=== PATIENT | female | born 2000 | race Caucasian/White ===

== ENCOUNTER 2021-10-16 23:46 | Emergency (ER) | payer OTHER, SELFPAY ==
--- NOTE | ~2021-10-16 | XR_ITS ---
EXAMINATION: XR CHEST CLINICAL INFORMATION: Chest pain COMPARISON: None TECHNIQUE: Frontal view of the chest was obtained. FINDINGS: Lung volumes are symmetric. No focal consolidation is seen. No evidence of pneumothorax, pleural effusion, or pulmonary edema. The cardiomediastinal contour is unremarkable. No acute osseous findings are seen. XR/XR chest 1V IMPRESSION: No acute cardiopulmonary findings.
[2021-10-17 00:21] VITALS: BP 124/71; PULSE 68; RESP 15; TEMP 36.8; O2SAT 98; BMI 32.2
--- NOTE | 2021-10-17 00:35 | ECG_ITS ---
Test Reason : ARRHYTHMIA/PALP Blood Pressure : / mmHG Vent. Rate : 076 BPM Atrial Rate : 076 BPM P-R Int : 146 ms QRS Dur : 076 ms QT Int : 386 ms P-R-T Axes : 025 043 015 degrees QTc Int : 434 ms Normal sinus rhythm with sinus arrhythmia Normal ECG No previous ECGs available Referred By: Generic ED Physician Electronically Signed By:Owen Owens
[2021-10-17 01:16] LABS: MANUAL DIFF FLAG NO
[2021-10-17 01:17] LABS: Basophils Percent Auto 0.2 % (0-2); Eosinophils Absolute Auto 0.1 X10*3/uL (0.0-0.4); Eosinophils Percent Auto 0.7 % (0-4); Hematocrit 41.9 % (37.0-47.0); Hemoglobin 13.7 g/dl (12.0-16.0); Imm Gran Abs Auto 0.01 X10*3/uL (0.00-0.03); Imm Gran Pct Auto 0.1 % (0.0-0.4); Lymphocytes Absolute Auto 1.6 X10*3/uL (1.2-4.9); Lymphocytes Percent Auto 18.9 % (20-40); Mean Corpuscular HGB Conc 32.7 g/dl (31.0-35.0); Mean Corpuscular Hemoglobin 28.5 pg (27.0-33.0); Mean Corpuscular Volume 87.3 fL (80.0-98.0); Mean Platelet Volume 8.7 fL (9.4-12.3); Monocytes Absolute Auto 0.4 X10*3/uL (0.1-1.2); Monocytes Percent Auto 4.5 % (2-11); Neutrophils Absolute Auto 6.2 x10*3/uL (2.0-8.3); Neutrophils Percent Auto 75.6 % (45-73); Platelet Count 357 X10*3/uL (160-400); Red Cell Distribution Width 15.2 % (11.0-16.0); White Blood Count 8.3 X10*3/uL (4.8-10.8)
[2021-10-17 01:20] VITALS: BP 112/69; PULSE 75; RESP 16; O2SAT 100
[2021-10-17 01:38] LABS: Anion Gap 12 (12-20); Blood Urea Nitrogen 10 mg/dL (9-16); Calcium 9.1 mg/dL (8.4-10.2); Carbon Dioxide 19 mmol/L (22-29); Chloride 112 mmol/L (96-108); Creatinine Clr Calc Pharmacy 85.5; Estimated Glomerular Filt Rate > 60; Glucose Random 90 mg/dL (60-115); Potassium 3.5 mmol/L (3.3-5.1); Sodium 139 mmol/L (135-145)
[2021-10-17 01:46] LABS: Troponin-I High Sensitivity < 3.5 ng/L (<3.5-17.0)
[2021-10-17 01:51] LABS: COVID-19 Test Negative (Negative)
--- NOTE | 2021-10-17 04:19 | ED.ARRPALP ---
HPI - Arrhythmia/Palpitations General Chief Complaint: Arrhythmia/Palpitations Stated Complaint: Chest Pain Time Seen by Provider: 10/17/21 01:39 Source: patient Mode of arrival: ambulatory History of Present Illness HPI narrative: 20-year-old female without significant past medical history other than being worked up for palpitations by her primary care provider and presents with same this evening without fever, chills, GI or symptoms. Patient states that during this episode she noted color change on her fingers and toes that is no longer apparent at this time. Related Data Home Medications Medication Instructions Recorded Confirmed acetazolamide 500 mg 4 cap PO BID 10/17/21 10/17/21 capsule,extended release levothyroxine 100 mcg tablet 1 tab PO DAILY 10/17/21 10/17/21 Allergies Allergy/AdvReac Type Severity Reaction Status Date / Time No Known Allergies Allergy Verified 10/17/21 00:31 Review of Systems Review of Systems: Pertinent positives and negatives as stated in HPI 10 point review of systems is otherwise negative. PMFSH Past Medical History Source: nursing notes reviewed Medical History Pressure in head Social History Social History Advance Directives: No Advance Directives Information Provided: Yes Patient : No Physical Exam Vital Signs: Vital Signs: Last Vital Signs Temp 98.3 F 10/17/21 00:21 Pulse 75 10/17/21 01:20 Resp 16 10/17/21 01:20 BP 112/69 10/17/21 01:20 Pulse Ox 100 10/17/21 01:20 BMI result Body Mass Index 32.2 VITAL SIGNS: Reviewed. GENERAL: Well developed, well nourished, in no acute distress. HEAD: Normocephalic/atraumatic EYES: PERRLA, EOMI EARS: Ext canals without abnormality, TMs non-bulging and non-erythematous NOSE: Nares patent bilateral OROPHARYNX: no oral lesions noted, posterior pharynx clear and non-erythematous without noted tonsillar enlargement/erythema/exudates NECK: Supple, no adenopathy LUNGS: Normal breath sounds, no tachypnea or increased work of breathing No adventitious sounds or accessory muscle use. SpO2<100> CARDIOVASCULAR: Regular rate and rhythm without noted murmurs ABDOMEN: Soft, non-tender, non-distended with bowel sounds. MUSCULOSKELETAL: No tenderness, deformities, or effusions noted on gross inspection. EXTREMITIES: No cyanosis, clubbing or edema. SKIN: Inspection of the skin reveals no rashes NEUROLOGIC: Alert and oriented x 4. Strength and sensation to light touch were grossly intact x 4. Course Course Course Narrative: 20-year-old female with history and clinical presentation consistent with palpitations that were not able to be confirmed on arrival. Patient's history is inconsistent with infection or anemia in etiology. And she denies any urinary symptoms. Review of all investigations negative for etiologies that may contribute to her symptoms such as infection, anemia. All results and findings discussed with the patient at bedside and she was strongly encouraged to follow up with the primary care this morning to further discuss workup for these persistent and chronic palpitations. MDM - Arrhythmia/Palpitations Lab Data Result diagrams: 10/17/21 01:11 10/17/21 01:10 Labs: Lab Results 10/17/21 10/17/21 10/17/21 Range/Units 01:10 01:11 01:11 WBC 8.3 (4.8-10.8) X10*3/uL RBC 4.80 (4.20-5.50) X10*6/uL Hgb 13.7 (12.0-16.0) g/dl Hct 41.9 (37.0-47.0) % MCV 87.3 (80.0-98.0) fL MCH 28.5 (27.0-33.0) pg MCHC 32.7 (31.0-35.0) g/dl RDW 15.2 (11.0-16.0) % Plt Count 357 (160-400) X10*3/uL MPV 8.7 L (9.4-12.3) fL Immature Gran % (Auto) 0.1 (0.0-0.4) % Neut % (Auto) 75.6 H (45-73) % Lymph % (Auto) 18.9 L (20-40) % [place] % (Auto) 4.5 (2-11) % Eos % (Auto) 0.7 (0-4) % Baso % (Auto) 0.2 (0-2) % Lymph # (Auto) 1.6 (1.2-4.9) X10*3/uL [place] # (Auto) 0.4 (0.1-1.2) X10*3/uL Eos # (Auto) 0.1 (0.0-0.4) X10*3/uL Baso # (Auto) 0.0 (0.0-0.2) X10*3/uL Abs Immat Gran (auto) 0.01 (0.00-0.03) X10*3/uL Absolute Neuts (auto) 6.2 (2.0-8.3) x10*3/uL Absolute Nucleated RBC 0.000 (0.0-0.012) X10*3/uL Nucleated RBC % (auto) 0.0 (0.0-0.2) /100WBC Sodium 139 (135-145) mmol/L Potassium 3.5 (3.3-5.1) mmol/L Chloride 112 H (96-108) mmol/L Carbon Dioxide 19 L (22-29) mmol/L Anion Gap 12 (12-20) BUN 10 (9-16) mg/dL Creatinine 0.94 (0.5-1.4) mg/dL Estim Creat Clear Calc 85.5 Estimated GFR > 60 Random Glucose 90 (60-115) mg/dL Calcium 9.1 (8.4-10.2) mg/dL Troponin I High Sens < 3.5 (<3.5-17.0) ng/L COVID-19 ([facility]) (Negative) COVID-19 Clin Com 10/17/21 Range/Units 01:22 WBC (4.8-10.8) X10*3/uL RBC (4.20-5.50) X10*6/uL Hgb (12.0-16.0) g/dl Hct (37.0-47.0) % MCV (80.0-98.0) fL MCH (27.0-33.0) pg MCHC (31.0-35.0) g/dl RDW (11.0-16.0) % Plt Count (160-400) X10*3/uL MPV (9.4-12.3) fL Immature Gran % (Auto) (0.0-0.4) % Neut % (Auto) (45-73) % Lymph % (Auto) (20-40) % [place] % (Auto) (2-11) % Eos % (Auto) (0-4) % Baso % (Auto) (0-2) % Lymph # (Auto) (1.2-4.9) X10*3/uL [place] # (Auto) (0.1-1.2) X10*3/uL Eos # (Auto) (0.0-0.4) X10*3/uL Baso # (Auto) (0.0-0.2) X10*3/uL Abs Immat Gran (auto) (0.00-0.03) X10*3/uL Absolute Neuts (auto) (2.0-8.3) x10*3/uL Absolute Nucleated RBC (0.0-0.012) X10*3/uL Nucleated RBC % (auto) (0.0-0.2) /100WBC Sodium (135-145) mmol/L Potassium (3.3-5.1) mmol/L Chloride (96-108) mmol/L Carbon Dioxide (22-29) mmol/L Anion Gap (12-20) BUN (9-16) mg/dL Creatinine (0.5-1.4) mg/dL Estim Creat Clear Calc Estimated GFR Random Glucose (60-115) mg/dL Calcium (8.4-10.2) mg/dL Troponin I High Sens (<3.5-17.0) ng/L COVID-19 ([facility]) Negative (Negative) COVID-19 Clin Com See Note Discharge Plan Discharge Clinical Impression: Palpitations, Anxiety Patient Disposition: Home, Self-Care Instructions: Heart Palpitations (ED) Additional Instructions: 1. Resume all home medications as prescribed. 2. Follow-up with your primary care provider in the morning to set up an appointment for re-evaluation further outpatient management. Return to the ER for worsening symptoms. Prescriptions: No Action acetazolamide 500 mg capsule, extended release 4 cap PO BID RF: 0 levothyroxine 100 mcg tablet 1 tab PO DAILY RF: 0 Referrals: Adalid Grant MD [Primary Care Provider] - 2 days
== END 2021-10-17 04:30 | disposition home or self-care (01) ==
PROVIDERS: Emergency Provider Student in an Organized Health Care Education/Training Program; PCP Internal Medicine
DX: R00.2 Palpitations (principal); F41.9 Anxiety disorder, unspecified; Z20.822 Contact with and (suspected) exposure to COVID-19
CPT/HCPCS: 36415; 71045; 80048; 84484; 85025; 87635; 93005; 99283; 99284

== ENCOUNTER 2021-10-20 22:16 | Emergency (ER) | payer OTHER, SELFPAY ==
--- NOTE | ~2021-10-20 | XR_ITS ---
EXAMINATION: XR CHEST CLINICAL INFORMATION: Chest pain COMPARISON: 10/17/2021 TECHNIQUE: 2 views of the chest were obtained. FINDINGS: The lungs are clear with no focal consolidation. No evidence of pneumothorax, pulmonary edema, or pleural effusions. The cardiomediastinal silhouette is unremarkable. No acute osseous findings. XR/XR chest 2V IMPRESSION: No acute cardiopulmonary findings.
--- NOTE | 2021-10-20 22:45 | ECG_ITS ---
Test Reason : cp Blood Pressure : / mmHG Vent. Rate : 077 BPM Atrial Rate : 077 BPM P-R Int : 140 ms QRS Dur : 076 ms QT Int : 374 ms P-R-T Axes : 032 028 -13 degrees QTc Int : 423 ms Normal sinus rhythm with sinus arrhythmia Nonspecific T wave abnormality Abnormal ECG When compared with ECG of 17-OCT-2021 00:55, Nonspecific T wave abnormality now evident in Anterolateral leads Referred By: Generic ED Physician Electronically Signed By:LACEY MADISON MD
[2021-10-21 00:11] VITALS: BP 157/63; PULSE 88; RESP 16; TEMP 36.9; O2SAT 96; BMI 32.2
[2021-10-21 01:16] VITALS: PULSE 76; RESP 18; O2SAT 100
--- NOTE | 2021-10-21 01:21 | ED_ITS ---
HPI - Chest Pain General Chief Complaint: Chest Pain Stated Complaint: chest pain Time Seen by Provider: 10/21/21 00:21 Source: patient Mode of arrival: ambulatory Limitations: no limitations History of Present Illness HPI narrative: Patient comes to the emergency room complaining of left-sided chest pain for 1-1/2 weeks. Patient states that she has been seen at [facility], she was seen here 2 days ago. All for the same complaint. Patient states that all of her lab work has been normal. Patient states that sometimes her hands and feet turn purple and it is unrelated to the weather. Patient states the symptom she sees veins popping out of her feet and pulsating. Related Data Home Medications Medication Instructions Recorded Confirmed acetazolamide 500 mg 4 cap PO BID 10/17/21 10/17/21 capsule,extended release levothyroxine 100 mcg tablet 1 tab PO DAILY 10/17/21 10/17/21 Allergies Allergy/AdvReac Type Severity Reaction Status Date / Time No Known Allergies Allergy Verified 10/21/21 00:15 Review of Systems Review of Systems: Constitutional : No Weight loss, No Fever, No Chills, No Night Sweats, No Fatigue, No Malaise ENT/Mouth : No Hearing loss, No Ear Pain, No Nasal Congestion, No Sinus Pain, No Hoarseness, No sore throat, No Rhinorrhea, No Swallowing Difficulty Eyes: No Eye Pain, No Swelling, No Redness, No Foreign Body, No Discharge, No Vision Changes Cardiovascular : Left-sided Chest Pain, No SOB, No Dyspnea on Exertion, No Orthopnea, No Edema, occasional palpitations, occasional heart racing Respiratory : No Cough, No Sputum, No Wheezing, No Smoke Exposure, No Dyspnea Gastrointestinal : No Nausea, No Vomiting, No Diarrhea, No Constipation, No abdominal Pain, No Hematochezia, No Melena Genitourinary : no irregular bleeding, No Dysuria, No Urinary Frequency, No Hematuria, No Urinary Incontinence, No Urgency, No Flank Pain, No Urinary Flow Changes, No Hesitancy Musculoskeletal : No joint pain, No Myalgias, No Joint Swelling Skin : No Skin Lesions, No rash Neuro : No Weakness, No Numbness, No Paresthesias, No Loss of Consciousness, No Dizziness, No Headache Psych : No Anxiety/Panic, No Depression, No SI/HI/AH/VH, No Social Issues, Heme/Lymph: No Bruising, No Bleeding,No Lymphadenopathy Endocrine : No Polyuria, No Polydipsia, No Temperature Intolerance PMF Past Medical History Medical History Pressure in head Social History Social History Advance Directives: No Advance Directives Information Provided: No Patient : No Physical Exam Vital Signs: Vital Signs: Last Vital Signs Temp 98.5 F 10/21/21 00:11 Pulse 76 10/21/21 01:16 Resp 18 10/21/21 01:16 BP 157/63 H 10/21/21 00:11 Pulse Ox 100 10/21/21 01:16 BMI result Body Mass Index 32.2 Const: Other: Appearance: Alert. Oriented X3. No acute distress. Well- appearing Eyes: Pupils equal, round and reactive to light. ENT: Pharynx normal. Neck: Normal inspection. Neck supple. No lymph nodes noted. No crepitus CVS: Normal heart rate and rhythm. Pulses normal. Normal S1 and S2 Respiratory: No respiratory distress. Breath sounds normal. No Wheezing. No rales Abdomen: Soft and nontender. No rigidity. No distention. Skin: Skin warm and dry. Normal skin color. Normal skin turgor. No cyanosis/bluish discoloration of fingernails, no pulsatile masses or vein Extremities: No lower extremity edema. No lower extremity edema. No Lacerations. No Rash Neuro: Oriented X 3. No motor deficit. No sensory deficit. Moving all extermities. No slurred speech. Course Course Course Narrative: Patient has had multiple blood work in various hospitals. Patient had blood work done in this facility 3 days ago. I am adding a few labs to her workup. Given my interaction with the patient, seems that patient is a very anxious lady. Patient's EKG within normal limits, troponin negative, the D-dimer negative, TSH within normal limits. Patient likely having anxiety. Patient instructed to follow-up with her primary care physician. MDM - Chest Pain Lab Data Labs: Lab Results 10/21/21 10/21/21 10/21/21 Range/Units 01:14 01:14 01:14 D-Dimer High Sensitivty < 150 NG/ML Troponin I High Sens < 3.5 (<3.5-17.0) ng/L TSH 3.51 (0.32-4.0) uIU/mL Urine Test (NEGATIVE) Urine Opiates Screen (Not Detect) Urine Fentanyl Screen (Not Detect) Ur Barbiturates Screen (Not Detect) Ur Phencyclidine Scrn (Not Detect) Ur Amphetamines Screen (Not Detect) U Benzodiazepines Scrn (Not Detect) Urine Cocaine Screen (Not Detect) U Marijuana (THC) Screen (Not Detect) 10/21/21 10/21/21 Range/Units 02:14 02:14 D-Dimer High Sensitivty NG/ML Troponin I High Sens (<3.5-17.0) ng/L TSH (0.32-4.0) uIU/mL Urine Test NEGATIVE (NEGATIVE) Urine Opiates Screen Not Detected (Not Detect) Urine Fentanyl Screen Not Detected (Not Detect) Ur Barbiturates Screen Not Detected (Not Detect) Ur Phencyclidine Scrn Not Detected (Not Detect) Ur Amphetamines Screen Not Detected (Not Detect) U Benzodiazepines Scrn Not Detected (Not Detect) Urine Cocaine Screen Not Detected (Not Detect) U Marijuana (THC) Screen Not Detected (Not Detect) Discharge Plan Discharge Clinical Impression: Palpitation, Anxiety Patient Disposition: Home, Self-Care Instructions: Anxiety (ED), Heart Palpitations (ED) Additional Instructions: Please follow-up with your primary care physician tomorrow. If you have any worsening or new symptoms, please return to the emergency room or call 911 Prescriptions: No Action acetazolamide 500 mg capsule, extended release 4 cap PO BID RF: 0 levothyroxine 100 mcg tablet 1 tab PO DAILY RF: 0
[2021-10-21 01:32] LABS: D Dimer High Sensitivity < 150 NG/ML
[2021-10-21 01:40] LABS: Troponin-I High Sensitivity < 3.5 ng/L (<3.5-17.0)
[2021-10-21 01:54] LABS: TSH reflex Free T4 3.51 uIU/mL (0.32-4.0)
--- NOTE | 2021-10-21 02:23 | PC.NURSE ---
UA obtained and sent.
[2021-10-21 02:30] LABS: UPreg QC Valid YES; Urine Pregnancy NEGATIVE (NEGATIVE)
[2021-10-21 02:36] LABS: Amphetamine Screen Urine Not Detected (Not Detect); Barbiturates, Urine Not Detected (Not Detect); Benzodiazepines Screen Urine Not Detected (Not Detect); Cannabinoid Screen Urine Not Detected (Not Detect); Cocaine Screen Urine Not Detected (Not Detect); Fentanyl, urine Not Detected (Not Detect); Opiate Screen Urine Not Detected (Not Detect); Phencyclidine Screen Urine Not Detected (Not Detect)
[2021-10-21 03:20] VITALS: BP 132/70; PULSE 84; RESP 16; O2SAT 98
== END 2021-10-21 03:23 | disposition home or self-care (01) ==
PROVIDERS: Emergency Provider Emergency Medicine
DX: R00.2 Palpitations (principal); R07.9 Chest pain, unspecified; F41.1 Generalized anxiety disorder; F43.0 Acute stress reaction; Z79.899 Other long term (current) drug therapy
CPT/HCPCS: 36415; 71046; 80307; 81025; 84443; 84484; 85379; 93005; 99284

== ENCOUNTER 2022-10-02 19:00 | Emergency (ER) | payer OTHER, SELFPAY ==
--- NOTE | ~2022-10-02 | US_ITS ---
EXAMINATION: US PELVIS CLINICAL INFORMATION: Pelvic pain. LMP 08/21/2022. COMPARISON: None TECHNIQUE: Ultrasound of the pelvis is performed using both transabdominal and transvaginal transducers along with Doppler. Transvaginal imaging is performed due to inadequate visualization transabdominally. FINDINGS: The uterus is anteverted and measures 8.8 x 4 x 5.3 cm. No fibroids. The endometrium measures 6 mm without discrete focal abnormality. The ovaries are normal and morphology with preserved flow at the moment of this examination. The right ovary measures 3.5 x 2.1 x 2.6 cm (10 mL) and the left ovary measures 2.7 x 1.7 x 1.9 cm (4.6 mL). The asymmetry in size is likely related with the presence of a 2.3 x 1.2 x 1.8 cm thick-walled lesion in the right, that favors to represent a collapsed corpus luteal cyst. There is a small amount of free fluid adjacent to the right ovary, likely physiologic or related with rupture of the corpus luteal cyst. US/US pelvic and transvaginal IMPRESSION: 1. No evidence of ovarian torsion at the moment of this examination. 2. A 2.3 cm thick wall hyperemic structure in the right ovary favors to represent an involuted corpus luteal cyst, however its appearance is not entirely classic and the central cystic component is not well delineated. Recommend a follow-up pelvic ultrasound in 6-12 weeks to reassess.
[2022-10-02 19:53] VITALS: BP 143/66; PULSE 90; RESP 18; TEMP 36.9; O2SAT 100; BMI 40.0
--- NOTE | 2022-10-02 19:53 | ED_ITS ---
HPI - Abdominal Pain General Chief Complaint: Abdominal Pain <Ally Plummer NP - Last Filed: 10/02/22 19:56> Stated Complaint: Lower Abdominal Pain <Ally Plummer NP - Last Filed: 10/02/22 19:56> Time Seen by Provider: 10/02/22 22:14 <Ally Plummer NP - Last Filed: 10/02/22 19:56> Source: patient <Alex Wilson MD - Last Filed: 10/03/22 01:09> Mode of arrival: ambulatory <Alex Wilson MD - Last Filed: 10/03/22 01:09> History of Present Illness HPI narrative: Patient history of ovarian cyst been having pain in pelvic area for last 1 week no vaginal discharge no urinary symptoms no fever or chills patient eating okay otherwise no nausea no vomiting or diarrhea <Alex Wilson MD - Last Filed: 10/03/22 01:09> Related Data Home Medications: Home Medications Medication Instructions Recorded Confirmed acetazolamide 500 mg 4 cap PO BID 10/17/21 10/17/21 capsule,extended release levothyroxine 100 mcg tablet 1 tab PO DAILY 10/17/21 10/17/21 Previous Rx's Medication Instructions Recorded ibuprofen 600 mg tablet 600 mg PO Q6H PRN fever or pain 10/03/22 #30 tabs <Ally Plummer NP - Last Filed: 10/02/22 19:56> Allergies/Adverse Reactions: Allergies Allergy/AdvReac Type Severity Reaction Status Date / Time No Known Allergies Allergy Verified 10/21/21 00:15 <Ally Plummer NP - Last Filed: 10/02/22 19:56> Review of Systems Review of Systems Yes all other systems are reviewed and are negative <Alex Wilson MD - Last Filed: 10/03/22 01:09> PMFSH Past Medical History Medical History: Medical History Pressure in head <Ally Plummer NP - Last Filed: 10/02/22 19:56> Social History Social History: Social History Advance Directives: No <Ally Plummer NP - Last Filed: 10/02/22 19:56> Physical Exam ED Vital Signs: Vital Signs - 24 hr 10/02/22 19:53 10/03/22 01:01 Temperature 98.4 F 98.0 F Pulse Rate 90 81 Respiratory Rate 18 16 Blood Pressure 143/66 H 135/65 Pulse Oximetry 100 97 Oxygen Delivery Method Room Air Room Air BMI result Body Mass Index 40.0 <Ally Plummer NP - Last Filed: 10/02/22 19:56> Vital Signs - 24 hr 10/02/22 19:53 10/03/22 01:01 Temperature 98.4 F 98.0 F Pulse Rate 90 81 Respiratory Rate 18 16 Blood Pressure 143/66 H 135/65 Pulse Oximetry 100 97 Oxygen Delivery Method Room Air Room Air BMI result Body Mass Index 40.0 <Alex Wilson MD - Last Filed: 10/03/22 01:09> Appearance: Alert. Oriented X3. No acute distress. Eyes: PERRLA, No Nystagmus ENT: Pharynx normal. Oral Mucosa moist Neck: Normal inspection. Neck supple. CVS: Normal heart rate and rhythm. Pulses normal. Respiratory: No respiratory distress. Equal air entry bilateral, no wheezing/rales/rhonchi Abdomen: Soft, mild tenderness suprapubic area no rebound tenderness or guarding Bowel sounds are present, no mass palpable, no CVA tenderness Skin: Skin warm and dry. Normal skin color. Normal skin turgor. Extremities: No lower extremity edema. No calf tenderness Neuro: Oriented X 3. No motor deficit. No sensory deficit <Alex Wilson MD - Last Filed: 10/03/22 01:09> Course Course Course Narrative: This is rapid medical exam. Deferred additional HPI, ROS, PE to primary provider. 21 yo female with history of hypothyroidism here with intermittent lower abdominal pain x 1 week with no urinary symptoms, fevers, chills, vomiting, diarrhea. +nausea. LMP one month ago. Sexual active. No contraception use. No new sexual partners. No vaginal discharge. Will obtain labs, UA, ur , covid testing. VSS. <Ally Plummer NP - Last Filed: 10/02/22 19:56> Medical Decision Making Medical Decision Making [facility] Narrative: Patient pelvic ultrasound showed small cyst on the right side likely the cause for the pain likely patient had a ruptured cyst <Alex Wilson MD - Last Filed: 10/03/22 01:09> Lab Data [facility] Lab Attestation statement: I reviewed the patient's lab results. <Alex Wilson MD - Last Filed: 10/03/22 01:09> Result Diagrams: : 10/02/22 20:18 10/02/22 20:17 <Ally Plummer NP - Last Filed: 10/02/22 19:56> Labs: Lab Results 10/02/22 10/02/22 10/02/22 Range/Units 20:17 20:17 20:17 WBC (4.8-10.8) X10*3/uL RBC (4.20-5.50) X10*6/uL Hgb (12.0-16.0) g/dl Hct (37.0-47.0) % MCV (80.0-98.0) fL MCH (27.0-33.0) pg MCHC (31.0-35.0) g/dl RDW (11.0-16.0) % Plt Count (160-400) X10*3/uL MPV (9.4-12.3) fL Immature Gran % (Auto) (0.0-0.4) % Neut % (Auto) (45-73) % Lymph % (Auto) (20-40) % Rankin % (Auto) (2-11) % Eos % (Auto) (0-4) % Baso % (Auto) (0-2) % Lymph # (Auto) (1.2-4.9) X10*3/uL Rankin # (Auto) (0.1-1.2) X10*3/uL Eos # (Auto) (0.0-0.4) X10*3/uL Baso # (Auto) (0.0-0.2) X10*3/uL Abs Immat Gran (auto) (0.00-0.03) X10*3/uL Absolute Neuts (auto) (2.0-8.3) x10*3/uL Absolute Nucleated RBC (0.0-0.012) X10*3/uL Nucleated RBC % (auto) (0.0-0.2) /100WBC Sodium 139 (135-145) mmol/L Potassium 4.3 D (3.3-5.1) mmol/L Chloride 102 (96-108) mmol/L Carbon Dioxide 28 (22-29) mmol/L Anion Gap 13 (12-20) BUN 13 (9-16) mg/dL Creatinine 0.80 (0.5-1.4) mg/dL Estim Creat Clear Calc 112.3 Estimated GFR > 60 Random Glucose 106 (60-115) mg/dL Calcium 9.4 (8.4-10.2) mg/dL Urine Color Yellow Urine Appearance Clear Urine pH 5.5 (5.0-9.0) Ur Specific Buckner 1.025 (1.005-1.025) Urine Protein Negative (Neg-Trace) mg/dL Urine Glucose (UA) Negative (Negative) mg/dL Urine Ketones Negative (Negative) mg/dL Urine Blood Negative (Negative) Urine Nitrite Negative (Negative) Ur Leukocyte Esterase Negative (Negative) Urine Test NEGATIVE (NEGATIVE) Influenza Type A (PCR) (Negative) Influenza Type B (PCR) (Negative) RSV RNA Qual (PCR) (Negative) SARS-CoV-2 RNA (RT-PCR) (Negative) 10/02/22 10/02/22 Range/Units 20:18 Unknown WBC 10.1 (4.8-10.8) X10*3/uL RBC 4.62 (4.20-5.50) X10*6/uL Hgb 12.4 (12.0-16.0) g/dl Hct 38.6 (37.0-47.0) % MCV 83.5 (80.0-98.0) fL MCH 26.8 L (27.0-33.0) pg MCHC 32.1 (31.0-35.0) g/dl RDW 13.7 (11.0-16.0) % Plt Count 402 H (160-400) X10*3/uL MPV 8.6 L (9.4-12.3) fL Immature Gran % (Auto) 0.4 (0.0-0.4) % Neut % (Auto) 78.8 H (45-73) % Lymph % (Auto) 15.8 L (20-40) % Rankin % (Auto) 3.7 (2-11) % Eos % (Auto) 1.0 (0-4) % Baso % (Auto) 0.3 (0-2) % Lymph # (Auto) 1.6 (1.2-4.9) X10*3/uL Rankin # (Auto) 0.4 (0.1-1.2) X10*3/uL Eos # (Auto) 0.1 (0.0-0.4) X10*3/uL Baso # (Auto) 0.0 (0.0-0.2) X10*3/uL Abs Immat Gran (auto) 0.04 H (0.00-0.03) X10*3/uL Absolute Neuts (auto) 8.0 (2.0-8.3) x10*3/uL Absolute Nucleated RBC 0.000 (0.0-0.012) X10*3/uL Nucleated RBC % (auto) 0.0 (0.0-0.2) /100WBC Sodium (135-145) mmol/L Potassium (3.3-5.1) mmol/L Chloride (96-108) mmol/L Carbon Dioxide (22-29) mmol/L Anion Gap (12-20) BUN (9-16) mg/dL Creatinine (0.5-1.4) mg/dL Estim Creat Clear Calc Estimated GFR Random Glucose (60-115) mg/dL Calcium (8.4-10.2) mg/dL Urine Color Urine Appearance Urine pH (5.0-9.0) Ur Specific Buckner (1.005-1.025) Urine Protein (Neg-Trace) mg/dL Urine Glucose (UA) (Negative) mg/dL Urine Ketones (Negative) mg/dL Urine Blood (Negative) Urine Nitrite (Negative) Ur Leukocyte Esterase (Negative) Urine Test (NEGATIVE) Influenza Type A (PCR) NEGATIVE (Negative) Influenza Type B (PCR) NEGATIVE (Negative) RSV RNA Qual (PCR) NEGATIVE (Negative) SARS-CoV-2 RNA (RT-PCR) NEGATIVE (Negative) <Ally Plummer NP - Last Filed: 10/02/22 19:56> Lab Results 10/02/22 10/02/22 10/02/22 Range/Units 20:17 20:17 20:17 WBC (4.8-10.8) X10*3/uL RBC (4.20-5.50) X10*6/uL Hgb (12.0-16.0) g/dl Hct (37.0-47.0) % MCV (80.0-98.0) fL MCH (27.0-33.0) pg MCHC (31.0-35.0) g/dl RDW (11.0-16.0) % Plt Count (160-400) X10*3/uL MPV (9.4-12.3) fL Immature Gran % (Auto) (0.0-0.4) % Neut % (Auto) (45-73) % Lymph % (Auto) (20-40) % Rankin % (Auto) (2-11) % Eos % (Auto) (0-4) % Baso % (Auto) (0-2) % Lymph # (Auto) (1.2-4.9) X10*3/uL Rankin # (Auto) (0.1-1.2) X10*3/uL Eos # (Auto) (0.0-0.4) X10*3/uL Baso # (Auto) (0.0-0.2) X10*3/uL Abs Immat Gran (auto) (0.00-0.03) X10*3/uL Absolute Neuts (auto) (2.0-8.3) x10*3/uL Absolute Nucleated RBC (0.0-0.012) X10*3/uL Nucleated RBC % (auto) (0.0-0.2) /100WBC Sodium 139 (135-145) mmol/L Potassium 4.3 D (3.3-5.1) mmol/L Chloride 102 (96-108) mmol/L Carbon Dioxide 28 (22-29) mmol/L Anion Gap 13 (12-20) BUN 13 (9-16) mg/dL Creatinine 0.80 (0.5-1.4) mg/dL Estim Creat Clear Calc 112.3 Estimated GFR > 60 Random Glucose 106 (60-115) mg/dL Calcium 9.4 (8.4-10.2) mg/dL Urine Color Yellow Urine Appearance Clear Urine pH 5.5 (5.0-9.0) Ur Specific Buckner 1.025 (1.005-1.025) Urine Protein Negative (Neg-Trace) mg/dL Urine Glucose (UA) Negative (Negative) mg/dL Urine Ketones Negative (Negative) mg/dL Urine Blood Negative (Negative) Urine Nitrite Negative (Negative) Ur Leukocyte Esterase Negative (Negative) Urine Test NEGATIVE (NEGATIVE) Influenza Type A (PCR) (Negative) Influenza Type B (PCR) (Negative) RSV RNA Qual (PCR) (Negative) SARS-CoV-2 RNA (RT-PCR) (Negative) 10/02/22 10/02/22 Range/Units 20:18 Unknown WBC 10.1 (4.8-10.8) X10*3/uL RBC 4.62 (4.20-5.50) X10*6/uL Hgb 12.4 (12.0-16.0) g/dl Hct 38.6 (37.0-47.0) % MCV 83.5 (80.0-98.0) fL MCH 26.8 L (27.0-33.0) pg MCHC 32.1 (31.0-35.0) g/dl RDW 13.7 (11.0-16.0) % Plt Count 402 H (160-400) X10*3/uL MPV 8.6 L (9.4-12.3) fL Immature Gran % (Auto) 0.4 (0.0-0.4) % Neut % (Auto) 78.8 H (45-73) % Lymph % (Auto) 15.8 L (20-40) % Rankin % (Auto) 3.7 (2-11) % Eos % (Auto) 1.0 (0-4) % Baso % (Auto) 0.3 (0-2) % Lymph # (Auto) 1.6 (1.2-4.9) X10*3/uL Rankin # (Auto) 0.4 (0.1-1.2) X10*3/uL Eos # (Auto) 0.1 (0.0-0.4) X10*3/uL Baso # (Auto) 0.0 (0.0-0.2) X10*3/uL Abs Immat Gran (auto) 0.04 H (0.00-0.03) X10*3/uL Absolute Neuts (auto) 8.0 (2.0-8.3) x10*3/uL Absolute Nucleated RBC 0.000 (0.0-0.012) X10*3/uL Nucleated RBC % (auto) 0.0 (0.0-0.2) /100WBC Sodium (135-145) mmol/L Potassium (3.3-5.1) mmol/L Chloride (96-108) mmol/L Carbon Dioxide (22-29) mmol/L Anion Gap (12-20) BUN (9-16) mg/dL Creatinine (0.5-1.4) mg/dL Estim Creat Clear Calc Estimated GFR Random Glucose (60-115) mg/dL Calcium (8.4-10.2) mg/dL Urine Color Urine Appearance Urine pH (5.0-9.0) Ur Specific Buckner (1.005-1.025) Urine Protein (Neg-Trace) mg/dL Urine Glucose (UA) (Negative) mg/dL Urine Ketones (Negative) mg/dL Urine Blood (Negative) Urine Nitrite (Negative) Ur Leukocyte Esterase (Negative) Urine Test (NEGATIVE) Influenza Type A (PCR) NEGATIVE (Negative) Influenza Type B (PCR) NEGATIVE (Negative) RSV RNA Qual (PCR) NEGATIVE (Negative) SARS-CoV-2 RNA (RT-PCR) NEGATIVE (Negative) <Alex Wilson MD - Last Filed: 10/03/22 01:09> Medications Administered Discontinued Medications Generic Name Dose Route Start Last Admin Trade Name Freq PRN Reason Stop Dose Admin Ibuprofen 600 mg 10/02/22 23:47 10/02/22 23:56 Ibuprofen 600 Mg Tablet PO 10/02/22 23:48 600 mg ONCE ONE Administration <Ally Plummer NP - Last Filed: 10/02/22 19:56> Medications Administered Discontinued Medications Generic Name Dose Route Start Last Admin Trade Name Freq PRN Reason Stop Dose Admin Ibuprofen 600 mg 10/02/22 23:47 10/02/22 23:56 Ibuprofen 600 Mg Tablet PO 10/02/22 23:48 600 mg ONCE ONE Administration <Alex Wilson MD - Last Filed: 10/03/22 01:09> Discharge Plan Discharge Clinical Impression: Ovarian cyst <Ally Plummer NP - Last Filed: 10/02/22 19:56> Patient Disposition: Home, Self-Care <Ally Plummer NP - Last Filed: 10/02/22 19:56> Instructions: Ovarian Cyst (ED) <Ally Plummer NP - Last Filed: 10/02/22 19:56> Additional Instructions: Ibuprofen for pain Follow-up with guest relations coordinator <Ally Plummer NP - Last Filed: 10/02/22 19:56> Prescriptions: New ibuprofen 600 mg tablet 600 mg PO Q6H PRN (Reason: fever or pain) Qty: 30 0RF No Action acetazolamide 500 mg capsule, extended release 4 cap PO BID levothyroxine 100 mcg tablet 1 tab PO DAILY <Ally Plummer NP - Last Filed: 10/02/22 19:56> Interventions: ED Discharge Assessment Last Done: 10/03/22 01:03 <Ally Plummer NP - Last Filed: 10/02/22 19:56> Discharge Date/Time: 10/03/22 01:03 <Ally Plummer NP - Last Filed: 10/02/22 19:56>
[2022-10-02 20:24] LABS: MANUAL DIFF FLAG NO
[2022-10-02 20:25] LABS: Basophils Percent Auto 0.3 % (0-2); Eosinophils Absolute Auto 0.1 X10*3/uL (0.0-0.4); Hematocrit 38.6 % (37.0-47.0); Hemoglobin 12.4 g/dl (12.0-16.0); Imm Gran Abs Auto 0.04 X10*3/uL (0.00-0.03); Imm Gran Pct Auto 0.4 % (0.0-0.4); Lymphocytes Absolute Auto 1.6 X10*3/uL (1.2-4.9); Lymphocytes Percent Auto 15.8 % (20-40); Mean Corpuscular HGB Conc 32.1 g/dl (31.0-35.0); Mean Corpuscular Hemoglobin 26.8 pg (27.0-33.0); Mean Corpuscular Volume 83.5 fL (80.0-98.0); Mean Platelet Volume 8.6 fL (9.4-12.3); Monocytes Absolute Auto 0.4 X10*3/uL (0.1-1.2); Monocytes Percent Auto 3.7 % (2-11); Neutrophils Percent Auto 78.8 % (45-73); Platelet Count 402 X10*3/uL (160-400); Red Blood Count 4.62 X10*6/uL (4.20-5.50); Red Cell Distribution Width 13.7 % (11.0-16.0); White Blood Count 10.1 X10*3/uL (4.8-10.8)
[2022-10-02 20:27] LABS: Appearance Urine Clear; Color Urine Yellow; Glucose Urine UA Negative (Negative); Leukocyte Esterase Urine Negative (Negative); Nitrite Urine Negative (Negative); PH 5.5 (5.0-9.0); Specific Gravity - Urine 1.025 (1.005-1.025); Urine Blood Negative (Negative); Urine Ketones Negative (Negative); Urine Protein Negative (Neg-Trace)
[2022-10-02 20:29] LABS: UPreg QC Valid YES; Urine Pregnancy NEGATIVE (NEGATIVE)
[2022-10-02 21:15] LABS: Influenza A PCR NEGATIVE (Negative); Influenza B PCR NEGATIVE (Negative); Resp Syncy Virus RNA Qual PCR NEGATIVE (Negative); SARS COV2 PCR INHOUSE NEGATIVE (Negative)
[2022-10-02 21:28] LABS: Anion Gap 13 (12-20); Blood Urea Nitrogen 13 mg/dL (9-16); Calcium 9.4 mg/dL (8.4-10.2); Carbon Dioxide 28 mmol/L (22-29); Chloride 102 mmol/L (96-108); Creatinine Clr Calc Pharmacy 112.3; Estimated Glomerular Filt Rate > 60; Glucose Random 106 mg/dL (60-115); Potassium 4.3 mmol/L (3.3-5.1); Sodium 139 mmol/L (135-145)
--- NOTE | 2022-10-02 23:09 | PC.NURSE ---
Pt resting at this no needs expressed at this time.
[2022-10-02] MEDS: Ibuprofen 600 MG TABLET PO (23:56)
[2022-10-03 01:01] VITALS: BP 135/65; PULSE 81; RESP 16; TEMP 36.7; O2SAT 97
== END 2022-10-03 01:03 | disposition home or self-care (01) ==
PROVIDERS: Nurse Practitioner Family; Emergency Provider Internal Medicine
DX: N83.201 Unspecified ovarian cyst, right side (principal); R10.30 Lower abdominal pain, unspecified; Z20.822 Contact with and (suspected) exposure to COVID-19
CPT/HCPCS: 0241U; 36415; 76830; 76856; 80048; 81003; 81025; 85025; 99284